=== PATIENT | male | born 1950 | race Caucasian/White ===

== ENCOUNTER → 2017-05-05 15:56 | Outpatient (CLI) | payer MEDICARE, BC, SELFPAY ==
[2017-05-05 20:33] LABS: Anion Gap 9.8 mEq/L (5-15); Blood Urea Nitrogen 14 mg/dL (7-18); Carbon Dioxide 30 mmol/L (21.0-32.0); Chloride 103 mmol/L (98-107); Creatinine,Serum 1.33 mg/dL (0.70-1.30); Estimated Glomerular Filt Rate 54 ml/min (>60); GFR (African American) 65 ML/MIN (>60); Glucose 85 mg/dL (74-106); Potassium 3.8 mmoL/L (3.5-5.1); Sodium 139 mmol/L (136-145)
== END ==
PROVIDERS: PCP Nurse Practitioner Family; Visit Provider Nurse Practitioner Family
DX: E87.6 Hypokalemia (principal)
CPT/HCPCS: 36415; 80048

== ENCOUNTER → 2017-06-21 10:35 | Outpatient (CLI) | payer MEDICARE, BC, SELFPAY ==
[2017-06-21 11:21] LABS: Hemoglobin A1C 5.5 % (0.0-7.0)
[2017-06-21 15:20] LABS: Alanine Aminotransferase 32 U/L (12-78); Albumin Level 3.8 gm/dL (3.4-5.0); Albumin/Globulin Ratio 1.2 (1.1-1.8); Alkaline Phosphatase 81 U/L (46-116); Anion Gap 12.9 mEq/L (5-15); Aspartate Amino Transferase 20 U/L (15-37); Bilirubin,Total 0.4 mg/dL (0.2-1.0); Blood Urea Nitrogen 11 mg/dL (7-18); Calcium 8.2 mg/dL (8.5-10.1); Carbon Dioxide 25 mmol/L (21.0-32.0); Chloride 106 mmol/L (98-107); Chol/HDL Ratio 2.5 (1-3.5); Cholesterol 121 mg/dL (140-200); Creatinine,Serum 1.16 mg/dL (0.70-1.30); Estimated Glomerular Filt Rate 63 ml/min (>60); GFR (African American) 76 ML/MIN (>60); Globulin 3.2 gm/dl (1.3-3.2); Glucose 114 mg/dL (74-106); HDL Cholesterol 48 mg/dL (27-67); LDL Cholesterol 64 mg/dL (0-130); Potassium 3.9 mmoL/L (3.5-5.1); Prostate Specific Ag Screen 1.5 ng/mL (0.0-4.0); Sodium 140 mmol/L (136-145); Thyroid Stimulating Hormone 1.96 uIU/ml (0.358-3.740); Triglycerides 47 mg/dL (30-200); Uric Acid 3.5 mg/dL (2.6-7.2); VLDL Cholesterol 9 mg/dL (0-40)
== END ==
PROVIDERS: Visit Provider Nurse Practitioner Family
DX: E11.9 Type 2 diabetes mellitus without complications (principal); I10 Essential (primary) hypertension; Z12.5 Encounter for screening for malignant neoplasm of prostate; E03.9 Hypothyroidism, unspecified; M19.049 Primary osteoarthritis, unspecified hand; R35.1 Nocturia
CPT/HCPCS: 36415; 80053; 80061; 83036; 84443; 84550; G0103

== ENCOUNTER → 2017-09-08 10:37 | Outpatient (CLI) | payer MEDICARE, BC, SELFPAY ==
[2017-09-08 12:50] LABS: Anion Gap 14.4 mEq/L (5-15); Blood Urea Nitrogen 9 mg/dL (7-18); Calcium 9.2 mg/dL (8.5-10.1); Carbon Dioxide 26 mmol/L (21.0-32.0); Chloride 105 mmol/L (98-107); Creatinine,Serum 1.17 mg/dL (0.70-1.30); Estimated Glomerular Filt Rate 62 ml/min (>60); GFR (African American) 75 ML/MIN (>60); Glucose 123 mg/dL (74-106); Magnesium 2.2 mg/dL (1.4-2.2); Potassium 4.4 mmoL/L (3.5-5.1); Sodium 141 mmol/L (136-145)
== END ==
PROVIDERS: Visit Provider Internal Medicine Cardiovascular Disease
DX: R06.02 Shortness of breath (principal); I25.10 Atherosclerotic heart disease of native coronary artery without angina pectoris; I10 Essential (primary) hypertension
CPT/HCPCS: 36415; 80048; 83735

== ENCOUNTER → 2017-11-24 12:06 | Outpatient (CLI) | payer MEDICARE, BC, SELFPAY ==
[2017-11-24 13:46] LABS: Hemoglobin A1C 6.3 % (0.0-7.0)
[2017-11-24 14:36] LABS: Alanine Aminotransferase 36 U/L (12-78); Albumin/Globulin Ratio 1.3 (1.1-1.8); Alkaline Phosphatase 76 U/L (46-116); Anion Gap 12.5 mEq/L (5-15); Aspartate Amino Transferase 20 U/L (15-37); Bilirubin,Total 0.5 mg/dL (0.2-1.0); Blood Urea Nitrogen 13 mg/dL (7-18); Calcium 8.9 mg/dL (8.5-10.1); Carbon Dioxide 28 mmol/L (21.0-32.0); Chloride 105 mmol/L (98-107); Chol/HDL Ratio 3.6 (1-3.5); Cholesterol 143 mg/dL (140-200); Creatinine,Serum 1.46 mg/dL (0.70-1.30); Estimated Glomerular Filt Rate 48 ml/min (>60); GFR (African American) 58 ML/MIN (>60); Globulin 3.2 gm/dl (1.3-3.2); Glucose 106 mg/dL (74-106); HDL Cholesterol 40 mg/dL (27-67); LDL Cholesterol 74 mg/dL (0-130); Potassium 4.5 mmoL/L (3.5-5.1); Sodium 141 mmol/L (136-145); Thyroid Stimulating Hormone 2.26 uIU/ml (0.358-3.740); Total Protein,Serum 7.2 gm/dL (6.4-8.2); Triglycerides 145 mg/dL (30-200); VLDL Cholesterol 29 mg/dL (0-40)
== END ==
PROVIDERS: PCP Nurse Practitioner Family; Visit Provider Nurse Practitioner Family
DX: E11.9 Type 2 diabetes mellitus without complications (principal); I10 Essential (primary) hypertension; E03.9 Hypothyroidism, unspecified
CPT/HCPCS: 36415; 80053; 80061; 83036; 84443

== ENCOUNTER → 2018-04-04 10:26 | Outpatient (CLI) | payer MEDICARE, BC, SELFPAY ==
[2018-04-04 10:41] LABS: Basophils % 0.1 % (0.1-2.0); Eosinophils # 0.1 K/mm3 (0.0-0.4); Eosinophils % 0.4 % (0.1-12.0); Hematocrit 40.3 % (42.0-52.0); Lymphocytes # 1.8 K/mm3 (0.7-4.5); Lymphocytes % 9.5 % (10-50); Mean Corpuscular HGB Conc 32.4 g/dL (31.8-35.4); Mean Corpuscular Volume 92.6 fl (80-94); Mean Platelet Volume 8.1 fl (7.4-10.4); Monocytes # 1.2 K/mm3 (0.1-1.0); Monocytes % 6.4 % (1.7-9.3); Neutrophils % 83.6 % (37.0-80.0); Platelet Count 283 K/mm3 (142-424); Red Blood Count 4.35 M/mm3 (4.60-6.20); White Blood Count 19.2 K/mm3 (4.8-10.8)
[2018-04-04 10:47] LABS: MANUAL DIFFERENTIAL MANUAL DIFFERENTIAL (MANUAL DIFF)
[2018-04-04 11:38] LABS: Hemoglobin A1C 6.1 % (0.0-7.0)
[2018-04-04 12:42] LABS: Lymphocytes % 10 % (10-50); Monocytes % 5 % (2-9); Neutrophils % 85 % (42-76); Total Cells Counted 100
[2018-04-04 12:43] LABS: Platelet Estimate Normal; RBC Morphology Normal
[2018-04-04 13:15] LABS: Alanine Aminotransferase 30 U/L (12-78); Albumin Level 3.4 gm/dL (3.4-5.0); Alkaline Phosphatase 72 U/L (46-116); Anion Gap 15.3 mEq/L (5-15); Aspartate Amino Transferase 14 U/L (15-37); Bilirubin,Total 0.2 mg/dL (0.2-1.0); Blood Urea Nitrogen 26 mg/dL (7-18); Calcium 8.2 mg/dL (8.5-10.1); Carbon Dioxide 25 mmol/L (21.0-32.0); Chloride 104 mmol/L (98-107); Chol/HDL Ratio 2.5 (1-3.5); Cholesterol 122 mg/dL (140-200); Creatinine,Serum 1.49 mg/dL (0.70-1.30); Estimated Glomerular Filt Rate 47 ml/min (>60); GFR (African American) 57 ML/MIN (>60); Globulin 3.5 gm/dl (1.3-3.2); Glucose 112 mg/dL (74-106); HDL Cholesterol 49 mg/dL (27-67); LDL Cholesterol 62 mg/dL (0-130); Potassium 4.3 mmoL/L (3.5-5.1); Sodium 140 mmol/L (136-145); Total Protein,Serum 6.9 gm/dL (6.4-8.2); Triglycerides 55 mg/dL (30-200); VLDL Cholesterol 11 mg/dL (0-40)
[2018-04-08 10:31] LABS: Immunoglobulin E, Total 520 IU/mL (0-100)
== END ==
PROVIDERS: Visit Provider Nurse Practitioner Family
DX: E78.00 Pure hypercholesterolemia, unspecified (principal); E11.9 Type 2 diabetes mellitus without complications; E03.9 Hypothyroidism, unspecified; T78.3XXA Angioneurotic edema, initial encounter
CPT/HCPCS: 36415; 80053; 80061; 82785; 83036; 84443; 85007; 85025

== ENCOUNTER → 2018-06-04 14:26 | Outpatient (CLI) | payer MEDICARE, BC, SELFPAY ==
--- NOTE | 2018-06-04 14:37 | US_ITS ---
US kidney retroperitoneal comp Ordering Physician: Courtney Best Patient Age: 67 years: Male HISTORY: ITS.REASON: HTN, CKD III renal insufficiency TECHNIQUE: Ultrasound both kidneys. Retroperitoneal COMPARISON :May 2013 ultrasound abdomen complete FINDINGS : Cortex well-maintained bilaterally with no hydronephrosis nor mass. Good color Doppler flow survey to both kidneys. The spleen is incidentally imaged and appears WNL. Character. No solid masses either kidney RIGHT KIDNEY.: 9.9 x 4 cm x 7.2 cm. 2.7 cm x 2.1 cm x2.4 benign-appearing exophytic cyst extending off lower pole right kidney... This is not seen on the previous abdominal study 2013. . LEFT KIDNEY 10.7 x 4.8 cm x 5.1 cm. IMPRESSION: No hydronephrosis nor mass. Kidneys intact normal size cortex well-maintained. Right renal cyst measures up to 2.7 cm. This is seen off the lower pole of the right kidney
[2018-06-04 16:14] LABS: Anion Gap 12.3 mEq/L (5-15); Blood Urea Nitrogen 13 mg/dL (7-18); Calcium 8.6 mg/dL (8.5-10.1); Carbon Dioxide 26 mmol/L (21.0-32.0); Chloride 105 mmol/L (98-107); Creatinine,Serum 1.37 mg/dL (0.70-1.30); Estimated Glomerular Filt Rate 52 ml/min (>60); GFR (African American) 63 ML/MIN (>60); Glucose 82 mg/dL (74-106); Magnesium 2.2 mg/dL (1.4-2.2); Phosphorous 3.7 mg/dL (2.4-4.9); Potassium 4.3 mmoL/L (3.5-5.1); Sodium 139 mmol/L (136-145)
== END ==
PROVIDERS: Visit Provider Nurse Practitioner Family
DX: N18.3 Chronic kidney disease, stage 3 (moderate) (principal); E83.41 Hypermagnesemia
CPT/HCPCS: 36415; 76770; 80048; 83735; 84100

== ENCOUNTER → 2018-07-04 11:03 | Outpatient (CLI) | payer MEDICARE, BC, SELFPAY ==
[2018-07-04 13:32] LABS: Anion Gap 14.3 mEq/L (5-15); Blood Urea Nitrogen 14 mg/dL (7-18); Calcium 8.9 mg/dL (8.5-10.1); Carbon Dioxide 26 mmol/L (21.0-32.0); Chloride 106 mmol/L (98-107); Creatinine,Serum 1.44 mg/dL (0.70-1.30); Estimated Glomerular Filt Rate 49 ml/min (>60); GFR (African American) 59 ML/MIN (>60); Glucose 106 mg/dL (74-106); Magnesium 2.3 mg/dL (1.4-2.2); Potassium 4.3 mmoL/L (3.5-5.1); Sodium 142 mmol/L (136-145)
== END ==
PROVIDERS: Visit Provider Nurse Practitioner Family
DX: E83.41 Hypermagnesemia (principal); N18.3 Chronic kidney disease, stage 3 (moderate)
CPT/HCPCS: 36415; 80048; 83735

== ENCOUNTER → 2019-04-21 11:48 | Outpatient (CLI) | payer MEDICARE, BC, SELFPAY ==
[2019-04-21 12:17] LABS: Basophils # 0.1 K/mm3 (0-0.2); Basophils % 1.6 % (0.1-2.0); Eosinophils # 0.3 K/mm3 (0.0-0.4); Eosinophils % 3.7 % (0.1-12.0); Hemoglobin 14.8 g/dL (14.1-18.0); Lymphocytes # 1.6 K/mm3 (0.7-4.5); Lymphocytes % 19.8 % (10-50); Mean Corpuscular HGB Conc 32.8 g/dL (31.8-35.4); Mean Corpuscular Hemoglobin 29.8 pg (27.0-31.2); Mean Corpuscular Volume 90.9 fl (80-94); Mean Platelet Volume 7.8 fl (7.4-10.4); Monocytes # 0.5 K/mm3 (0.1-1.0); Monocytes % 6.1 % (1.7-9.3); Neutrophils # 5.6 K/mm3 (1.8-7.8); Neutrophils % 68.9 % (37.0-80.0); Platelet Count 244 K/mm3 (142-424); Red Blood Count 4.95 M/mm3 (4.60-6.20); White Blood Count 8.1 K/mm3 (4.8-10.8)
[2019-04-21 13:30] LABS: Creatinine,Urine Random 26 mg/dL (20-320)
[2019-04-21 14:29] LABS: Alanine Aminotransferase 28 U/L (12-78); Albumin Level 3.7 gm/dL (3.4-5.0); Albumin/Globulin Ratio 1.2 (1.1-1.8); Alkaline Phosphatase 81 U/L (46-116); Anion Gap 16.3 mEq/L (5-15); Aspartate Amino Transferase 21 U/L (15-37); Bilirubin,Total 0.5 mg/dL (0.2-1.0); Blood Urea Nitrogen 13 mg/dL (7-18); Calcium 8.5 mg/dL (8.5-10.1); Carbon Dioxide 26 mmol/L (21.0-32.0); Chloride 108 mmol/L (98-107); Chol/HDL Ratio 3.6 (1-3.5); Cholesterol 133 mg/dL (140-200); Creatinine,Serum 1.43 mg/dL (0.70-1.30); Estimated Glomerular Filt Rate 49 ml/min (>60); GFR (African American) 60 ML/MIN (>60); Globulin 3.2 gm/dl (1.3-3.2); Glucose 105 mg/dL (74-106); HDL Cholesterol 37 mg/dL (27-67); LDL Cholesterol 76 mg/dL (0-130); Magnesium 2.2 mg/dL (1.4-2.2); Potassium 4.3 mmoL/L (3.5-5.1); Sodium 146 mmol/L (136-145); Thyroid Stimulating Hormone 1.72 uIU/ml (0.358-3.740); Total Protein,Serum 6.9 gm/dL (6.4-8.2); Triglycerides 99 mg/dL (30-200); VLDL Cholesterol 20 mg/dL (0-40)
[2019-04-22 12:35] LABS: Microalbumin, Urine <3.0 ug/mL (Not Estab.)
== END ==
PROVIDERS: Visit Provider Nurse Practitioner Family
DX: E11.9 Type 2 diabetes mellitus without complications (principal); E03.9 Hypothyroidism, unspecified; N18.3 Chronic kidney disease, stage 3 (moderate); E83.42 Hypomagnesemia; R35.1 Nocturia; I12.9 Hypertensive chronic kidney disease with stage 1 through stage 4 chronic kidney disease, or unspecified chronic kidney disease; Z12.5 Encounter for screening for malignant neoplasm of prostate
CPT/HCPCS: 36415; 80053; 80061; 82043; 82570; 83036; 83735; 84443; 85025; G0103

== ENCOUNTER → 2019-05-04 12:47 | Outpatient (CLI) | payer MEDICARE, BC, SELFPAY ==
--- NOTE | 2019-05-04 12:50 | CT_ITS ---
PROCEDURE: CT LUNG SCREENING CLINICAL INDICATION: CURRENT TOBACCO USE Seventy-five pack-year smoking history, asymptomatic for lung cancer COMPARISON: No exams were available for comparison TECHNIQUE: The exam was performed on a GE Light Speed [address] scanner using 2.90 mGy CTDI. A low dose helical CT CHEST was performed on a multi-detector scanner. All CT scans at the facility use one or more dose reduction, viz: automated exposure control, ma/kV adjustment per patient size (including targeted exams where dose is matched to indication, i.e. head), or iterative reconstruction technique. The LDCT was performed in a facility that meets the criteria for the screening program. Data regarding this exam was submitted to ACR which is an approved registry. The order for this exam indicates that it came as a result of a lung cancer screening counseling shard decision-making visit that included all the elements required of such a visit including smoking cessation. The radiologist interpreting this exam meets the CMS criteria for the LDCT lung cancer screening program. The exam is reported using the Lung-RADS classification scale and reported to the ACR registry. NOTE: This study was performed for the specific purposes of lung cancer screening and is not an alternative to diagnostic chest CT. RADIATION DOSE: CTDI vol(CT dose Index-volume) = 2.90mG DLP (Dose Length Product) = 117.50 mGcm FINDINGS: There is a 12 x 11 mm noncalcified nodule in the right apex. The margins are slightly irregular. There is calcified granuloma in the right upper lobe. Nodularity is also noted in the right hilar region anteriorly and may represent an additional nodule or small lymph nodes. This measures approximately 10 x 12 mm. There is some patchy airspace opacification at this region as well. There is a 5 mm noncalcified nodule in the left lower lobe series 4, image 56. No effusions are evident. There is mild coarsening of the bronchovascular markings. Coronary artery calcifications are present in there are a few small mildly prominent mediastinal lymph nodes measuring up to 12 by 13 mm in the paratracheal region inferiorly. There is narrowing of the right upper lobe bronchus with some increased soft tissue density at this area. There is fullness of the right hilum in the region of the right upper lobe bronchus. Bronchial lesion is suspected. CT of the chest without and with contrast is suggested for further evaluation. Incidental note is made of gynecomastia. IMPRESSION: Abnormal screening low dose chest CT. Findings are suspicious for neoplasm with narrowing of the right mainstem bronchus, nodularity in the right hilar region, and a 12 mm right upper lobe nodule as well as a few mildly prominent mediastinal lymph nodes. Lung rads 4 A Recommend dedicated chest CT without and with contrast for further evaluation Dictated by: Van Kimble MD 05/17/2019 08:15 Electronically signed by Van Kimble MD in [place] 05/17/2019 08:15
== END ==
PROVIDERS: PCP Nurse Practitioner Family; Visit Provider Nurse Practitioner Family
DX: Z87.891 Personal history of nicotine dependence (principal); Z12.2 Encounter for screening for malignant neoplasm of respiratory organs

== ENCOUNTER → 2019-05-24 11:55 | Outpatient (CLI) | payer MEDICARE, BC, SELFPAY ==
[2019-05-24 12:18] LABS: Blood Urea Nitrogen 11 mg/dl (9-20); Estimated Glomerular Filt Rate 55 ml/min (>60); GFR (African American) 66 ML/MIN (>60)
--- NOTE | 2019-05-24 13:20 | CT_ITS ---
PROCEDURE: CT CHEST WO/W CON CLINCAL INDICATION: ABNORMAL ABDOMINAL CT Lung mass evaluation COMPARISON: ABDPELW/O CT ABD PELVIS W/O CONTRAST from 10/11/2014 CT LUNG SCREENING from 05/04/2019 TECHNIQUE: IV Contrast: 75 ml Optiray 350 Axial images obtained with sagittal and coronal reformats. All CT scans at the facility use one or more dose reduction, viz: automated exposure control, ma/kV adjustment per patient size (including targeted exams where dose is matched to indication, i.e. head), or iterative reconstruction technique. FINDINGS: HEART AND MEDIASTINAL STRUCTURES: Coronary artery calcification and stents noted. There is a mildly prominent node or cluster of nodes within the right anterior paratracheal region at 2.2 by 1.3 cm. There are small left paratracheal lymph nodes also present. There is a right hilar mass measuring 3 x 2.7 x 2.3 cm. This envelopment in the right upper lobe bronchus and extends inferior lying along the superior aspect of the descending branch of the right pulmonary artery in the right middle lobe branch of the pulmonary artery. This is causing marked narrowing of the right upper lobe bronchus with occlusion of the proximal aspect of the apical segmental and anterior segmental bronchi with marked narrowing of the posterior segmental bronchi to the right upper lobe with bronchial thickening. No contralateral mediastinal or hilar adenopathy is evident although there are some small nodes in the left paratracheal region which are 6 mm or less. LUNGS AND PLEURAL SPACES: There is a noncalcified 12 mm nodule in the right apex with spiculated margins suspicious for neoplasm. There is some fibrotic change superior to this region. A calcified nodules present in the right upper lobe laterally. There is some mild nodularity in the anterior aspect of the right hilum. There is some patchy infiltrate in the right upper lobe anteriorly and centrally. The left lung is clear. BONY STRUCTURES: No acute bony abnormalities apparent. UPPER ABDOMEN: The right adrenal gland is enlarged with nodule enlargement measuring up to 2 cm. The unenhanced density however is approximately -2 Hounsfield units suggesting adenomatous involvement. There was some enlargement of the adrenal gland on a older CT scan of 10/11/2014. This is NOT felt to be suspicious for metastatic disease. The left lobe of the liver is slightly prominent which is nonspecific ADDITIONAL FINDINGS: No other significant abnormalities. IMPRESSION: 1. Right hilar mass/adenopathy with suspicious 12 mm nodule in the right apex. These findings are consistent with lung carcinoma. The right hilar mass is causing occlusion of the proximal aspect of the anterior and apical segmental bronchus with narrowing of the right upper lobe bronchus. Bronchoscopy suggested for further evaluation. 2. Mildly prominent pretracheal lymph nodes. 3. Enlarged right adrenal gland felt to be adenomatous in nature Dictated by: Van Kimble MD 05/25/2019 07:10 Electronically signed by Van Kimble MD in [place] 05/25/2019 07:10
== END ==
PROVIDERS: PCP Nurse Practitioner Family; Visit Provider Nurse Practitioner Family
DX: R91.1 Solitary pulmonary nodule (principal); R93.5 Abnormal findings on diagnostic imaging of other abdominal regions, including retroperitoneum
CPT/HCPCS: 36415; 71270; 82565; 84520; Q9967

== ENCOUNTER → 2021-02-12 11:18 | Outpatient (CLI) | payer MEDICARE, BC, SELFPAY ==
[2021-02-12 11:52] LABS: Basophils # 0.1 K/mm3 (0-0.2); Basophils % 1.1 % (0.1-2.0); Eosinophils # 0.2 K/mm3 (0.0-0.4); Eosinophils % 2.6 % (0.1-12.0); Hematocrit 39.9 % (42.0-52.0); Hemoglobin 13.9 g/dL (14.1-18.0); Lymphocytes # 1.4 K/mm3 (0.7-4.5); Lymphocytes % 20.8 % (10-50); Mean Corpuscular HGB Conc 34.9 g/dL (31.8-35.4); Mean Corpuscular Hemoglobin 32.4 pg (27.0-31.2); Mean Corpuscular Volume 92.9 fl (80-94); Mean Platelet Volume 7.9 fl (7.4-10.4); Monocytes # 0.4 K/mm3 (0.1-1.0); Monocytes % 5.3 % (1.7-9.3); Neutrophils # 4.9 K/mm3 (1.8-7.8); Neutrophils % 70.2 % (37.0-80.0); Platelet Count 217 K/mm3 (142-424); Red Blood Count 4.29 M/mm3 (4.60-6.20); White Blood Count 6.9 K/mm3 (4.8-10.8)
[2021-02-12 14:16] LABS: Chloride 109 mmol/L (98-107)
[2021-02-12 14:17] LABS: Potassium 4.5 mmoL/L (3.5-5.1); Sodium 141 mmol/L (136-145)
[2021-02-12 14:19] LABS: Alanine Aminotransferase 26 U/L (12-78); Aspartate Amino Transferase 35 U/L (17-59); Blood Urea Nitrogen 9 mg/dl (9-20); Estimated Glomerular Filt Rate 66 ml/min (>60); GFR (African American) 80 ML/MIN (>60)
[2021-02-12 14:20] LABS: Albumin/Globulin Ratio 1.5 (1.1-1.8); Alkaline Phosphatase 73 U/L (38-126); Anion Gap 10.5 mEq/L (5-15); Bilirubin,Total 0.6 mg/dl (0.2-1.3); Calcium 8.4 mg/dl (8.4-10.2); Carbon Dioxide 26 mmol/L (22.0-30.0); Globulin 2.7 g/dL (1.3-3.2); Glucose 118 mg/dl (74-100); Total Protein,Serum 6.7 g/dl (6.3-8.2)
[2021-02-12 14:53] LABS: Thyroid Stimulating Hormone 2.52 uIU/mL (0.465-4.68)
== END ==
PROVIDERS: Visit Provider Nurse Practitioner Family
DX: E03.9 Hypothyroidism, unspecified (principal); N18.31 Chronic kidney disease, stage 3a
CPT/HCPCS: 36415; 80053; 84443; 85025

== ENCOUNTER → 2023-03-18 10:49 | Outpatient (CLI) | payer MEDICARE, BC, SELFPAY ==
[2023-03-18 11:28] LABS: Basophils % 0.5 % (0.1-2.0); Eosinophils # 0.3 K/mm3 (0.0-0.4); Eosinophils % 4.7 % (0.1-12.0); Hematocrit 42.9 % (42.0-52.0); Hemoglobin 14.7 g/dL (14.1-18.0); Lymphocytes # 1.5 K/mm3 (0.7-4.5); Lymphocytes % 21.1 % (10-50); Mean Corpuscular HGB Conc 34.3 g/dL (31.8-35.4); Mean Corpuscular Hemoglobin 30.7 pg (27.0-31.2); Mean Corpuscular Volume 89.5 fl (80-94); Monocytes # 0.3 K/mm3 (0.1-1.0); Monocytes % 4.8 % (1.7-9.3); Neutrophils # 4.9 K/mm3 (1.8-7.8); Neutrophils % 68.9 % (37.0-80.0); Platelet Count 235 K/mm3 (142-424); Red Blood Count 4.79 M/mm3 (4.60-6.20); Red Cell Distribution Width 14.6 % (11.5-17.5); White Blood Count 7.2 K/mm3 (4.8-10.8)
[2023-03-18 11:49] LABS: Hemoglobin A1C 6.2 % (4.0-6.0)
[2023-03-18 12:12] LABS: Chloride 106 mmol/L (98-107)
[2023-03-18 12:13] LABS: Potassium 3.8 mmoL/L (3.5-5.1)
[2023-03-18 12:15] LABS: Alanine Aminotransferase 29 U/L (12-78); Albumin Level 4.3 g/dl (3.5-5.0); Albumin/Globulin Ratio 1.7 (1.1-1.8); Alkaline Phosphatase 93 U/L (38-126); Aspartate Amino Transferase 31 U/L (17-59); Bilirubin,Total 0.6 mg/dl (0.2-1.3); Blood Urea Nitrogen 9 mg/dl (9-20); Carbon Dioxide 29 mmol/L (22.0-30.0); Cholesterol 131 mg/dl (140-200); Estimated Glomerular Filt Rate 60 ml/min (>60); GFR (African American) 72 ML/MIN (>60); Globulin 2.5 g/dL (1.3-3.2); Total Protein,Serum 6.8 g/dl (6.3-8.2); Triglycerides 115 mg/dl (30-150); VLDL Cholesterol 23 mg/dL (0-40)
[2023-03-18 12:16] LABS: Calcium 8.4 mg/dl (8.4-10.2); Chol/HDL Ratio 3.4 (1-3.5); Glucose 136 mg/dl (74-100); HDL Cholesterol 39 mg/dl (40-60)
[2023-03-18 12:38] LABS: Direct LDL Cholesterol 80.01 mg/dL (100-129)
[2023-03-18 12:48] LABS: Creatinine,Urine Random 52 mg/dL (Not Estab.); Microalbumin < 6.000 mg/L (0-16.7)
[2023-03-18 13:01] LABS: Uric Acid 5.2 mg/dl (3.5-8.5)
[2023-03-18 15:15] LABS: Anion Gap 8.8 mEq/L (5-15); Sodium 140 mmol/L (136-145)
== END ==
PROVIDERS: PCP Nurse Practitioner Family; Visit Provider Nurse Practitioner Family
DX: E11.9 Type 2 diabetes mellitus without complications (principal); I10 Essential (primary) hypertension; M1A.9XX0 Chronic gout, unspecified, without tophus (tophi); C34.91 Malignant neoplasm of unspecified part of right bronchus or lung; Z86.79 Personal history of other diseases of the circulatory system
CPT/HCPCS: 36415; 80053; 80061; 82043; 82570; 83036; 84550; 85025

== ENCOUNTER 2023-10-20 13:23 | Emergency (ER) | payer MEDICARE, BC, SELFPAY ==
[2023-10-20] VITALS (7 sets, daily range): BP systolic 126–140; BP diastolic 72–83; PULSE 86–108; RESP 18–20; TEMP 36.6–37; O2SAT 94–98; BMI 34.0
--- NOTE | 2023-10-20 13:45 | [facility].EDGENADL ---
Discharge Plan Disposition Patient Disposition: Xfer Short-Term Hosp Referrals Follow up/Referrals: Provider,Referral, [Primary Care Provider] - See instructions Clinical Impressions Clinical Impression: Acute renal failure, Bowel obstruction Instructions Patient Instructions: DI for Diarrhea and Traveler's Diarrhea -- Adult, DI for Diarrhea and Traveler's Diarrhea -- Child, DI for Nausea -- Adult, DI for Nausea -- Child Discharge ED Provider: Eliza Smith General Adult HPI General Chief complaint: Nausea/Vomiting/Diarrhea Stated complaint: Weakness Time Seen by Provider: 10/20/23 13:42 History of Present Illness HPI narrative: This patient is a 72-year-old male with a history of metastatic lung cancer not currently on treatment who has previously done chemo and radiation per the patient, 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 Patient notes that he started having crampy abdominal pain on Friday of last week, and by Friday he developed intractable nausea and vomiting. He notes he has not really been able to eat or drink anything since Friday. He has not vomited in the last 24 hours, but the pain has been persistent. He also has not had ostomy output during this timeframe. Given this, he came in for further evaluation and management. He denies fevers or other concerns. Related Data Allergies Allergy/AdvReac Type Severity Reaction Status Date / Time From [facility] Allergy Severe I-HIVES, Uncoded 03/18/17 14:27 [facility]ON[facility] MORALES [facility] Disclaimer: The information contained in this section may have been updated after the patient was seen, as this information can be updated by other users. Social History Smoking Status: Never smoker alcohol intake: never current occupational status: retired Travel in the last 8 weeks: None ROS Obtained: Yes All systems reviewed & no additional complaints except as documented Physical Exam General General appearance: alert, in no apparent distress and obese Head Head exam: atraumatic and normocephalic Eye Eye exam: Present normal appearance, PERRL and EOMI ENT ENT exam: Present mucous membranes dry and normal external ear exam Neck Neck exam: Present normal inspection, full ROM and trachea midline; Absent tenderness Chest Chest inspection: Present normal inspection and symmetric chest wall rise; Absent tenderness Respiratory Respiratory exam: Present normal lung sounds bilaterally; Absent respiratory distress, wheezes, stridor or accessory muscle use Cardiovascular Cardiovascular exam: Present regular rate and normal rhythm Abdominal Exam Abdominal exam: Present distention and tenderness; Absent guarding, rebound or rigidity Extremities Exam Extremities exam: Present normal inspection, full ROM and normal capillary refill; Absent tenderness or edema Back Exam Back exam: Present normal inspection and full ROM; Absent tenderness Neurological Exam Neurological exam: Present alert, oriented X3, CN II-XII intact and normal gait; Absent motor sensory deficit Psychiatric Psychiatric exam: Present normal affect and normal mood Skin Skin exam: Present warm and dry Medical Decision Making Medical Records Medical records reviewed: Yes I reviewed the patient's medical records. Michael Inquiry Pt receiving controlled substance: No Vital Signs: 10/20/23 13:37 10/20/23 16:00 Temperature 97.8 F Temperature Source Oral Pulse Rate 86 Pulse Rate [Left Radial] 108 H Respiratory Rate 20 Blood Pressure 126/78 Blood Pressure [Right Arm] 136/72 Blood Pressure Mean 96 Blood Pressure Mean [Right Arm] 93 02 Sat by Pulse Oximetry 98 95 Oxygen Delivery Method Room Air Room Air Lab Data Lab results reviewed: Yes I reviewed the patient's lab results. Lab Results 10/20/23 13:15: WBC 5.8, RBC 5.08, Hgb 16.0, Hct 47.4, MCV 93.2, MCH 31.4 H, MCHC 33.7, RDW 15.3, Plt Count 245, MPV 8.4, Neut % (Auto) 69.6, Lymph % (Auto) 14.9, [place] % (Auto) 13.7 H, Eos % (Auto) 0.9, Baso % (Auto) 0.9, Neut # (Auto) 4.0, Lymph # (Auto) 0.9, [place] # (Auto) 0.8, Eos # (Auto) 0.1, Baso # (Auto) 0.1, PT 11.3, INR 1.01, Sodium 137, Potassium 4.1, Chloride 93 L, Carbon Dioxide 28, Anion Gap 20.1 H, BUN 65 H, Creatinine 4.50 H, Estimated Creat Clear 21, Estimated GFR 13 L*, Est GFR ( Amer) 16 L*, Glucose 131 H, Calcium 9.9, Total Bilirubin 0.9, AST 37, ALT 38, Alkaline Phosphatase 92, Total Protein 8.2, Albumin 4.6, Globulin 3.6 H, Albumin/Globulin Ratio 1.3, Lipase 19 L 10/20/23 13:15 10/20/23 13:15 Orders (Tests/Meds): ED MEDICATIONS Discontinued Medications Generic Name Dose Route Start Last Admin Trade Name Freq PRN Reason Stop Dose Admin Acetaminophen 1,000 mg 10/20/23 13:44 10/20/23 14:04 Acetaminophen 1,000mg/100ml Vial IV 10/20/23 13:45 1,000 mg ONCE ONE Administration Lactated Ringer's 1,000 mls @ 999 mls/hr 10/20/23 13:44 10/20/23 14:03 Lactated Ringer's 1000 Ml Bag IV 10/20/23 14:44 999 mls/hr .Q1H1M ONE Administration Lactated Ringer's 1,000 mls @ 999 mls/hr 10/20/23 15:22 10/20/23 15:30 Lactated Ringer's 1000 Ml Bag IV 10/20/23 16:22 999 mls/hr .Q1H1M ONE Administration Ketorolac Tromethamine 15 mg 10/20/23 13:44 10/20/23 14:04 Ketorolac 30mg/Ml Vial IV 10/20/23 13:45 15 mg ONCE ONE Administration Ondansetron HCl 4 mg 10/20/23 13:44 10/20/23 14:04 Ondansetron 4mg/2ml Vial IV 10/20/23 13:45 4 mg ONCE ONE Administration ORDERS Category Date Time Status CT abdomen pelvis wo con Stat Cat Scan 10/20/23 14:08 Completed Complete Blood Count Auto Diff Stat Lab 10/20/23 13:15 Completed Comprehensive Metabolic Panel Stat Lab 10/20/23 13:15 Completed INR [Prothrombin Time INR] Stat Lab 10/20/23 13:15 Completed Lactic Acid Stat Lab 10/20/23 13:43 Ordered Lipase Stat Lab 10/20/23 13:15 Completed UA [Urinalysis and Microscopic] Stat Lab 10/20/23 13:43 Ordered Medical Decision Narrative: In summary, this patient is a 72-year-old male presenting to the Emergency Department for evaluation of generalized abdominal pain, nausea, and vomiting. Differential diagnoses considered include but are not limited to bowel obstruction, colitis, constipation, cystitis, pyelonephritis. Ruling out the most morbid conditions drove assessment. On exam, the patient is sitting up in no acute distress. He has generalized abdominal tenderness and distention as well as dry mucous membranes. I note essentially no output in his ostomy bag. I have highest concern for bowel obstruction. Workup included CBC, CMP, lipase, and CT abdomen and pelvis without IV contrast. Patient is given a bolus of IV fluids as well as IV TORADOL, ACETAMINOPHEN, AND ZOFRAN. I independently interpreted CT scan prior to the radiologist read and noted bowel obstruction. Please see their read for final interpretation. Radiology noted concern for hernia, but I feel the are likely talking about his ostomy as I do not appreciate large hernia. Labs were obtained that demonstrated acute renal failure with a creatinine of 4.5 from a baseline of 1.3. No significant leukocytosis or other concerns. On reassessment, patient had good improvement after administration of as above and is requesting food and drink, however advised him we cannot give him anything given his bowel obstruction. Not placing an NG tube at this time given the lack of vomiting. I had and after discussion with our surgeon here, but patient has had multiple surgeries in the past and follows at with colorectal surgery, so given this as well as his acute renal failure, he felt the patient would benefit from transfer. Patient was given total of 1.5 L of IV fluids and still is making no urine. I initiated conversations with , and I spoke with Dr. Champion of the transfer center and Dr. Solomon with colorectal surgery who advised that they would send the patient to for evaluation and management. They do have beds available, so patient will go to direct bed. Patient updated to plan of care. Patient was transported in stable condition. Critical Care Critical Care Time Critical Care Time: No
[2023-10-20 13:53] LABS: Chloride 93 mmol/L (98-107); Potassium 4.1 mmoL/L (3.5-5.1); Sodium 137 mmol/L (136-145)
[2023-10-20 13:55] LABS: Alanine Aminotransferase 38 U/L (12-78); Aspartate Amino Transferase 37 U/L (17-59); Blood Urea Nitrogen 65 mg/dl (9-20); Creatinine Clearance Estimated 21 mL/min (50-200); Estimated Glomerular Filt Rate 13 ml/min (>60); GFR (African American) 16 ML/MIN (>60)
[2023-10-20 13:56] LABS: Albumin Level 4.6 g/dl (3.5-5.0); Albumin/Globulin Ratio 1.3 (1.1-1.8); Alkaline Phosphatase 92 U/L (38-126); Anion Gap 20.1 mEq/L (5-15); Bilirubin,Total 0.9 mg/dl (0.2-1.3); Calcium 9.9 mg/dl (8.4-10.2); Carbon Dioxide 28 mmol/L (22.0-30.0); Globulin 3.6 g/dL (1.3-3.2); Glucose 131 mg/dl (74-100); Lipase 19 U/L (23-300); Total Protein,Serum 8.2 g/dl (6.3-8.2)
[2023-10-20 14:00] LABS: Basophils # 0.1 K/mm3 (0-0.2); Basophils % 0.9 % (0.1-2.0); Eosinophils # 0.1 K/mm3 (0.0-0.4); Eosinophils % 0.9 % (0.1-12.0); Hematocrit 47.4 % (42.0-52.0); INR 1.01 (0.9-1.1); Lymphocytes # 0.9 K/mm3 (0.7-4.5); Lymphocytes % 14.9 % (10-50); Mean Corpuscular HGB Conc 33.7 g/dL (31.8-35.4); Mean Corpuscular Hemoglobin 31.4 pg (27.0-31.2); Mean Corpuscular Volume 93.2 fl (80-94); Mean Platelet Volume 8.4 fl (7.4-10.4); Monocytes # 0.8 K/mm3 (0.1-1.0); Monocytes % 13.7 % (1.7-9.3); Neutrophils % 69.6 % (37.0-80.0); Platelet Count 245 K/mm3 (142-424); Prothrombin Time 11.3 seconds (10.1-12.5); Red Blood Count 5.08 M/mm3 (4.60-6.20); Red Cell Distribution Width 15.3 % (11.5-17.5); White Blood Count 5.8 K/mm3 (4.8-10.8)
[2023-10-20] MEDS: LACTATED RINGERS 1000ML 1,000 ML 999 ML IV ×2 (14:03→15:30)
--- NOTE | 2023-10-20 14:03 | PC.NURSE ---
Dr. Smith notified of pt critical creat and GRF. MD gave verbal order to change CT to without contrast
[2023-10-20] MEDS: KETOROLAC 30MG/ML VIAL 15 MG IV (14:04)
[2023-10-20] MEDS: ACETAMINOPHEN 1,000MG/100ML VIAL 1000 MG IV (14:04)
[2023-10-20] MEDS: ONDANSETRON 4MG/2ML VIAL 4 MG IV (14:04)
--- NOTE | 2023-10-20 14:08 | CT_ITS ---
FINAL REPORT TECHNIQUE: Noncontrast CT exam of the abdomen and pelvis. This study was performed with techniques to keep radiation doses as low as reasonably achievable (ALARA). Individualized dose reduction techniques using automated exposure control or adjustment of mA and/or kV according to the patient''s size were employed. CLINICAL HISTORY: nausea/vomiting FINDINGS: Abdomen: Lung bases are clear. Liver, spleen, pancreas and adrenal glands have a normal CT appearance in their limited unenhanced state. The kidneys show no stone disease or obstruction. No obvious renal mass is present. No ureteral stones are present. There is significant small bowel distension with fluid measuring up to 47 mm. There is mild gastric distention with fluid. Findings are secondary to high-grade obstruction involving the distal jejunum within a right para midline central abdominal wall hernia. The abdominal defect measures 2.3 cm. The hernia sac measures 6.5 cm. Pelvis: The ileum and colon are decompressed. There is mild nonspecific stranding in the left lower quadrant fat. No distal ureteral stones are seen. Bladder is unremarkable. The prostate is unremarkable. IMPRESSION: High-grade partial small-bowel obstruction associated with a right paramidline abdominal wall hernia containing jejunum. Reviewed, Interpreted and Dictated by Francisco J Burgess MD Transcribed by Sara Valenzuela Authenticated and [facility]
--- NOTE | 2023-10-20 15:11 | PC.NURSE ---
dr pelletier paged
--- NOTE | 2023-10-20 15:25 | PC.NURSE ---
spoke to tx center. they advised the attending is doing handoff for another pt and will call us back soon
--- NOTE | 2023-10-20 15:30 | PC.NURSE ---
Dr. Smith on the phone with [facility]
--- NOTE | 2023-10-20 15:49 | PC.NURSE ---
Dr. Smtih reported pt has been accepted by Dr. Solomon at . Pt will to transfer to the floor and not the ED. waiting on a bed assignment.
--- NOTE | 2023-10-20 15:50 | PC.NURSE ---
DR MORENO AT BEDSIDE TO UPDATE PT
--- NOTE | 2023-10-20 17:14 | PC.NURSE ---
imaging disc in patient information packet for transfer
[2023-10-20] MEDS: FAMOTIDINE 20MG/2ML VIAL 20 MG IV (17:16)
== END 2023-10-20 19:20 | disposition short-term general hospital (02) ==
PROVIDERS: Emergency Provider Emergency Medicine
DX: K56.609 Unspecified intestinal obstruction, unspecified as to partial versus complete obstruction (principal); N17.9 Acute kidney failure, unspecified; Z93.3 Colostomy status; Z90.49 Acquired absence of other specified parts of digestive tract
CPT/HCPCS: 74176; 80053; 83690; 85025; 85610; 96361; 96374; 96375; 99285; J0131; J1885; J2405; J7120; S0028

== ENCOUNTER 2023-11-04 19:03 | Emergency (ER) | payer MEDICARE, BC, SELFPAY ==
[2023-11-04 19:04] VITALS: BP 133/93; PULSE 86; RESP 22; TEMP 37.1; O2SAT 95; BMI 34.2
--- NOTE | 2023-11-04 19:05 | ED_ITS ---
Discharge Plan Disposition Patient Disposition: Xfer Short-Term Hosp Condition: Serious Clinical Impressions Clinical Impression: Complete obstruction of small intestine, Sepsis without septic shock Stand Alone Forms Stand Alone Forms: Transfer Record - ED Instructions Patient Instructions: DI for Diarrhea and Traveler's Diarrhea -- Adult, DI for Diarrhea and Traveler's Diarrhea -- Child, DI for Nausea -- Adult, DI for Nausea -- Child Print Language Print Language: Macedonian Discharge ED Provider: Zaheer Gonzales General Adult HPI <ANTONELLA Cuevas - Last Filed: 11/04/23 21:04> General Chief complaint: Nausea/Vomiting/Diarrhea Stated complaint: Nausea Time Seen by Provider: 11/04/23 19:05 History of Present Illness HPI narrative: Patient presents for nausea vomiting and abdominal pain. Patient has an extensive abdominal surgical history as well as medical history. Patient has a history of stage IV lung cancer status post chemo and radiation and a history of diverticulitis initially with a left colectomy and left lower quadrant colostomy but ultimately required a loop ileostomy with a right lower quadrant ostomy which was last done in the early part of 2019 for March I believe. He presented to [facility] on with acute abdominal pain and was found to have a high-grade small bowel obstruction proximally with a abdominal wall hernia containing jejunum as a transition point. Patient was resuscitated here and ultimately transferred to the [facility] on . Patient was admitted from 10-19 until 8?2 and then discharged home. He was managed conservatively with NG tube decompression however his diet was only advanced to GI soft prior to discharge according to the note. Patient was fine for 1 day and then started having increasing abdominal pain and has not had a bowel movement since Friday. He has not eaten since Friday and anything that he does eat comes up. He has had increasing abdominal discomfort as well and presents to the emergency department for evaluation. He denies fever chills hemoptysis hematochezia hematemesis hematuria or diarrhea. Related Data Allergies Allergy/AdvReac Type Severity Reaction Status Date / Time From [facility]OR[facility]IC Allergy Severe I-HIVES, Uncoded 03/18/17 14:27 LIPS SWELL <Zaheer Gonzales MD - Last Filed: 11/04/23 21:37> History of Present Illness HPI narrative: Was admitted from 10-19 until 8?2 Hank Youssef is a 72 yo male with PMHx significnat for stage IV lung cancer and diverticulitis, s/p L colectomy, colostomy, and now loop ileostomy who presented from OSH on 10/19 for concerns for SBO. Upon presentation, the patient was significantly distended, nauseous, and diffuse abd pain most localized in the RUQ. OSH CT A/P showed signs of partial SBO. NPO diet was started and NGT was placed for bowel decompression. Patient was also found to have concomitant JOSE on labwork, likely secondary to dehydration given FeNa <3%, was managed with fluids and trended kidney function. The patient's bowel was decompressed with NGT with output gradually decreasing and ostomy beginning to have output once more. He passed clamp trial and was able to have NGT removed and diet advanced from clears to gi soft over the course of his stay. His UOP and kidney function also improved with fluid therapy over the course of his stay. On 10/28, the patient was hemodynamically stable and deemed medically appropriate for discharge. He will follow up with Dr. Peralta in [facility] in 2-3 weeks. [facility] <ANTONELLA Cuevas - Last Filed: 11/04/23 21:04> [facility] Disclaimer: The information contained in this section may have been updated after the patient was seen, as this information can be updated by other users. Social History (Updated 10/20/23 @ 16:44 by Eliza Smith DO) Smoking Status: Former smoker alcohol intake: never current occupational status: retired Travel in the last 8 weeks: None <ANTONELLA Cuevas - Last Filed: 11/04/23 21:04> ROS Obtained: Yes Systems reviewed as appropriate & no additional complaints except as documented Physical Exam <ANTONELLA Cuevas - Last Filed: 11/04/23 21:04> General General appearance: alert and in no apparent distress Respiratory Respiratory exam: Present normal lung sounds bilaterally and accessory muscle use Cardiovascular Cardiovascular exam: Present regular rate, normal rhythm and normal heart sounds Abdominal Exam Abdominal exam: Present soft, distention (And slightly tympanic), tenderness (Diffuse intense tenderness even to light palpation) and hyperactive bowel sounds; Absent guarding, rebound or rigidity Extremities Exam Extremities exam: Present normal inspection and full ROM Back Exam Back exam: Present normal inspection and full ROM Neurological Exam Neurological exam: Present alert and oriented X3 Medical Decision Making <ANTONELLA Cuevas - Last Filed: 11/04/23 21:04> Medical Records Medical records reviewed: Yes I reviewed the patient's medical records. Michael Inquiry Pt receiving controlled substance: No Vital Signs: 11/04/23 19:04 11/04/23 20:30 Temperature 98.7 F Temperature Source Oral Pulse Rate 88 Pulse Rate [Right Radial] 86 Respiratory Rate 22 Blood Pressure 144/82 H Blood Pressure [Right Arm] 133/93 H Blood Pressure Mean [Right Arm] 106 02 Sat by Pulse Oximetry 95 95 Oxygen Delivery Method Room Air Lab Data Lab results reviewed: Yes I reviewed the patient's lab results. Lab Results 11/04/23 19:36: WBC 12.6 H, RBC 4.33 L, Hgb 13.5 L, Hct 39.9 L, MCV 92.3, MCH 31.2, MCHC 33.9, RDW 15.6, Plt Count 355, MPV 7.5, Neut % (Auto) 84.2 H, Lymph % (Auto) 9.1 L, [place] % (Auto) 4.8, Eos % (Auto) 1.6, Baso % (Auto) 0.4, Neut # (Auto) 10.6 H, Lymph # (Auto) 1.1, [place] # (Auto) 0.6, Eos # (Auto) 0.2, Baso # (Auto) 0.1, Sodium 140, Potassium 3.6, Chloride 99, Carbon Dioxide 30, Anion Gap 14.6, BUN 19, Creatinine 2.30 H, Estimated Creat Clear 42, Estimated GFR 28 L, E st GFR ( Amer) 34 L, Glucose 119 H, Calcium 8.5, Total Bilirubin 0.9, AST 33, ALT 38, Alkaline Phosphatase 118, Total Protein 6.9, Albumin 3.8, Globulin 3.1, Albumin/Globulin Ratio 1.2, Procalcitonin 0.124 11/04/23 19:36 11/04/23 19:36 Orders (Tests/Meds): ED MEDICATIONS Generic Name Dose Route Start Last Admin Trade Name Freq PRN Reason Stop Dose Admin Piperacillin Sod/Tazobactam 50 mls @ 100 mls/hr 11/04/23 21:15 Sod 3.375 gm/ Sodium Chloride IV 11/14/23 21:14 Q6H JIN Discontinued Medications Generic Name Dose Route Start Last Admin Trade Name Ion PRN Reason Stop Dose Admin Acetaminophen 1,000 mg 11/04/23 19:08 11/04/23 19:31 Acetaminophen 1,000mg/100ml Vial IV 11/04/23 19:09 1,000 mg ONCE ONE Administration Hydromorphone HCl 0.5 mg 11/04/23 19:49 11/04/23 20:07 Hydromorphone 2mg/Ml Syringe IV 11/04/23 19:50 0.5 mg ONCE ONE Administration Lactated Ringer's 1,000 mls @ 999 mls/hr 11/04/23 19:08 11/04/23 19:30 Lactated Ringer's 1000 Ml Bag IV 11/04/23 20:08 999 mls/hr .Q1H1M ONE Administration Iopamidol 75 ml 11/04/23 20:01 11/04/23 20:02 Iopamidol-370 (76%);100ml Bottle IV 11/04/23 20:02 75 ml ONCE ONE Administration Ondansetron HCl 4 mg 11/04/23 19:08 11/04/23 19:31 Ondansetron 4mg/2ml Vial IV 11/04/23 19:09 4 mg ONCE ONE Administration Sodium Chloride 10 ml 11/04/23 20:01 11/04/23 20:02 Sodium Chloride 0.9% 10ml Syr (Rad Only) IV 11/04/23 20:02 10 ml ONCE ONE Administration ORDERS Category Date Time Status CT abdomen pelvis w con Stat Cat Scan 11/04/23 19:08 Completed KUB (single view) [XR KUB] Stat Exams 11/04/23 19:44 Completed CBC w/Auto Diff [Complete Blood Count Auto Diff] Stat Lab 11/04/23 19:36 Completed CMP [Comprehensive Metabolic Panel] Stat Lab 11/04/23 19:36 Completed Lactic Acid Stat Lab 11/04/23 19:09 Ordered Procalcitonin Stat Lab 11/04/23 19:36 Completed Tissue Perfus/Sepsis Re-Eval Sepsis Re-Evaluation Performed: Yes Date Performed: 11/04/23 Time Performed: 21:04 Medical Decision Narrative: In summary patient is a 72-year-old male who presents to the emergency department for evaluation of nausea vomiting and abdominal pain. Patient is dynamically currently upon arrival, and afebrile. Physical exam is remarkable for scant contents of his ostomy bag that appears very thin liquid but stool colored, diffuse abdominal distention and tenderness to light palpation with hyperactive bowel sounds but no rebound tenderness. Differential diagnosis includes recurrent high-grade proximal small bowel obstruction versus constipation although less likely versus gastroenteritis although again unlikely etc. Initial workup will be conducted with hematologic labs CT scan abdomen pelvis. Initial interventions include crystalloid bolus Zofran NG tube decompression. Initial workup reviewed by me shows patient has an elevated white count, he does have an acute kidney injury, and my informal interpretation of his imaging shows a high-grade small bowel obstruction with a transition point just prior to or in the parastomal hernia with decompressed jejunum distally but also I see pneumatosis . Additionally, I informally interpreted his KUB after NG tube placement to assure that it was actually in the stomach which it was. Upon repeat evaluation did report improvement after NG tube decompression.. Given this I had an interactive discussion with [facility] about patient management. Patient has been accepted to the [facility] emergency room care of Dr. Resendiz of colorectal surgery. <Zaheer Gonzales MD - Last Filed: 11/04/23 21:37> Vital Signs: 11/04/23 19:04 11/04/23 20:30 Temperature 98.7 F Temperature Source Oral Pulse Rate 88 Pulse Rate [Right Radial] 86 Respiratory Rate 22 Blood Pressure 144/82 H Blood Pressure [Right Arm] 133/93 H Blood Pressure Mean [Right Arm] 106 02 Sat by Pulse Oximetry 95 95 Oxygen Delivery Method Room Air Lab Data Lab Results 11/04/23 19:36: WBC 12.6 H, RBC 4.33 L, Hgb 13.5 L, Hct 39.9 L, MCV 92.3, MCH 31.2, MCHC 33.9, RDW 15.6, Plt Count 355, MPV 7.5, Neut % (Auto) 84.2 H, Lymph % (Auto) 9.1 L, [place] % (Auto) 4.8, Eos % (Auto) 1.6, Baso % (Auto) 0.4, Neut # (Auto) 10.6 H, Lymph # (Auto) 1.1, [place] # (Auto) 0.6, Eos # (Auto) 0.2, Baso # (Auto) 0.1, Sodium 140, Potassium 3.6, Chloride 99, Carbon Dioxide 30, Anion Gap 14.6, BUN 19, Creatinine 2.30 H, Estimated Creat Clear 42, Estimated GFR 28 L, E st GFR ( Amer) 34 L, Glucose 119 H, Calcium 8.5, Total Bilirubin 0.9, AST 33, ALT 38, Alkaline Phosphatase 118, Total Protein 6.9, Albumin 3.8, Globulin 3.1, Albumin/Globulin Ratio 1.2, Procalcitonin 0.124 Orders (Tests/Meds): ED MEDICATIONS Generic Name Dose Route Start Last Admin Trade Name Freq PRN Reason Stop Dose Admin Piperacillin Sod/Tazobactam 50 mls @ 100 mls/hr 11/04/23 21:15 Sod 3.375 gm/ Sodium Chloride IV 11/14/23 21:14 Q6H JIN Discontinued Medications Generic Name Dose Route Start Last Admin Trade Name Freq PRN Reason Stop Dose Admin Acetaminophen 1,000 mg 11/04/23 19:08 11/04/23 19:31 Acetaminophen 1,000mg/100ml Vial IV 11/04/23 19:09 1,000 mg ONCE ONE Administration Hydromorphone HCl 0.5 mg 11/04/23 19:49 11/04/23 20:07 Hydromorphone 2mg/Ml Syringe IV 11/04/23 19:50 0.5 mg ONCE ONE Administration Lactated Ringer's 1,000 mls @ 999 mls/hr 11/04/23 19:08 11/04/23 19:30 Lactated Ringer's 1000 Ml Bag IV 11/04/23 20:08 999 mls/hr .Q1H1M ONE Administration Iopamidol 75 ml 11/04/23 20:01 11/04/23 20:02 Iopamidol-370 (76%);100ml Bottle IV 11/04/23 20:02 75 ml ONCE ONE Administration Ondansetron HCl 4 mg 11/04/23 19:08 11/04/23 19:31 Ondansetron 4mg/2ml Vial IV 11/04/23 19:09 4 mg ONCE ONE Administration Sodium Chloride 10 ml 11/04/23 20:01 11/04/23 20:02 Sodium Chloride 0.9% 10ml Syr (Rad Only) IV 11/04/23 20:02 10 ml ONCE ONE Administration ORDERS Category Date Time Status CT abdomen pelvis w con Stat Cat Scan 11/04/23 19:08 Completed KUB (single view) [XR KUB] Stat Exams 11/04/23 19:44 Completed CBC w/Auto Diff [Complete Blood Count Auto Diff] Stat Lab 11/04/23 19:36 Completed CMP [Comprehensive Metabolic Panel] Stat Lab 11/04/23 19:36 Completed Lactic Acid Stat Lab 11/04/23 19:09 Ordered Procalcitonin Stat Lab 11/04/23 19:36 Completed Medical Decision Narrative: In summary patient is a 72-year-old male who presents to the emergency department for evaluation of nausea vomiting and abdominal pain. Patient is dynamically currently upon arrival, and afebrile. Physical exam is remarkable for scant contents of his ostomy bag that appears very thin liquid but stool colored, diffuse abdominal distention and tenderness to light palpation with hyperactive bowel sounds but no rebound tenderness. Differential diagnosis includes recurrent high-grade proximal small bowel obstruction versus constipation although less likely versus gastroenteritis although again unlikely etc. Initial workup will be conducted with hematologic labs CT scan abdomen pelvis. Initial interventions include crystalloid bolus Zofran NG tube decompression. Initial workup reviewed by me shows patient has an elevated white count, he does have an acute kidney injury, and my informal interpretation of his imaging shows a high-grade small bowel obstruction with a transition point just prior to or in the parastomal hernia with decompressed jejunum distally but also I see pneumatosis . Additionally, I informally interpreted his KUB after NG tube placement to assure that it was actually in the stomach which it was. Upon repeat evaluation did report improvement after NG tube decompression.. Given this I had an interactive discussion with [facility] about patient management. Patient has been accepted to the [facility] emergency room care of Dr. Resendiz of colorectal surgery. I was consulted by the DAVID, and we discussed the complexity of the problems being addressed. I approved the treatment and management plan for this patient's care in the emergency department, thus performing a substantive portion of the medical decision making. Antibiotics were administrated given pneumatosis in the setting of high-grade obstruction Zaheer Gonzales MD Critical Care <ANTONELLA Cuevas - Last Filed: 11/04/23 21:04> Critical Care Time Critical Care Time: No
--- NOTE | 2023-11-04 19:08 | CT_ITS ---
PROCEDURE INFORMATION: Exam: CT Abdomen And Pelvis With Contrast Exam date and time: 11/04/2023 7:59 PM Age: 72 years old Clinical indication: Abdominal pain; Generalized; Additional info: Abdominal pain, no ostomy output, recent sbo TECHNIQUE: Imaging protocol: Computed tomography of the abdomen and pelvis with contrast. Radiation optimization: All CT scans at this facility use at least one of these dose optimization techniques: automated exposure control; mA and/or kV adjustment per patient size (includes targeted exams where dose is matched to clinical indication); or iterative reconstruction. Contrast material: ISOVUE; Contrast volume: 75 ml; Contrast route: IV; COMPARISON: CT ABDOMEN PELVIS WO CON 10/20/2023 2:19 PM FINDINGS: Tubes, catheters and devices: Nasogastric tube identified tip within the body of the stomach. Lungs: The visualized lung bases demonstrate no focal infiltrates or pleural effusions. Liver: The liver appears within normal limits. Gallbladder and biliary ducts: There has been a cholecystectomy. Pancreas: Normal. No ductal dilation. Spleen: The spleen is normal. Adrenal glands: The adrenal glands appear within normal limits. Kidneys and ureters: Exophytic simple cyst off the right kidney mid to lower pole measures 3 cm. Stomach and bowel: Dilated loops of small bowel again identified without improvement from the prior CT scan. Maximal distension 5 cm. They are fluid-filled. In addition there is marginal is a leal of gas bubbles abutting the ivey both on the dependent and nondependent portion of the small bowel throughout most of the entire region of dilated bowel. All of these findings are consistent with ischemic bowel with pneumatosis. However this does not appear to be the source of the small bowel obstruction. The transition point for the obstruction is best seen on sagittal image 41 and axial image 56. Presumably due to adhesion. Appendix: No evidence of appendicitis. Intraperitoneal space: There is also mesenteric edema. Vasculature: Unremarkable. No abdominal aortic aneurysm. Lymph nodes: Unremarkable. No enlarged lymph nodes. Urinary bladder: The bladder lumen is decompressed with extrinsic mass effect secondary to the dilated small bowel loops. Reproductive: Unremarkable as visualized. Bones/joints: Unremarkable. No acute fracture. Soft tissues: The patient is noted to have a ventral hernia containing decompressed loops of small bowel. IMPRESSION: 1. Persistent high-grade small bowel obstruction with evidence for developing ischemia with pneumatosis identified. 2. The patient is noted to have a ventral ostomy with peristomal hernia containing decompressed loops of small bowel. However this does not appear to be the source of the small bowel obstruction. The transition point for the obstruction is best seen on sagittal image 41 and axial image 56. Presumably due to adhesion. 3. The bladder lumen is decompressed with extrinsic mass effect secondary to the dilated small bowel loops. COMMENTS: Consistent with the [employer]'s Incidental Findings Committee white paper (J Am Heather Radiol 2018): Any incidental renal lesion less than 1 cm or classified as too small to characterize, or any incidental cystic renal lesion characterized as simple-appearing, is likely benign. No follow-up imaging is recommended for these lesions per consensus recommendations based on imaging criteria.
[2023-11-04] MEDS: LACTATED RINGERS 1000ML 1,000 ML 999 ML IV (19:30)
[2023-11-04] MEDS: ONDANSETRON 4MG/2ML VIAL 4 MG IV (19:31)
[2023-11-04] MEDS: ACETAMINOPHEN 1,000MG/100ML VIAL 1000 MG IV (19:31)
--- NOTE | 2023-11-04 19:44 | XR_ITS ---
PROCEDURE INFORMATION: Exam: XR Abdomen Exam date and time: 11/04/2023 7:41 PM Age: 72 years old Clinical indication: Device placement; Gi device; Nasogastric tube; Additional info: Ng tube placement TECHNIQUE: Imaging protocol: Radiologic exam of the abdomen. Views: Frontal supine view of the abdomen. 1 View. COMPARISON: CT ABDOMEN PELVIS WO CON 10/20/2023 2:19 PM FINDINGS: Tubes, catheters and devices: Nasogastric tube identified with tip projecting over the body of the stomach. Gastrointestinal tract: Partially visualized abnormal dilated loops of small bowel-see recent CT abdomen report for additional details Bones/joints: Unremarkable. IMPRESSION: Nasogastric tube identified with tip projecting over the body of the stomach.
[2023-11-04 19:50] LABS: Basophils # 0.1 K/mm3 (0-0.2); Basophils % 0.4 % (0.1-2.0); Eosinophils # 0.2 K/mm3 (0.0-0.4); Eosinophils % 1.6 % (0.1-12.0); Hematocrit 39.9 % (42.0-52.0); Hemoglobin 13.5 g/dL (14.1-18.0); Lymphocytes # 1.1 K/mm3 (0.7-4.5); Lymphocytes % 9.1 % (10-50); Mean Corpuscular HGB Conc 33.9 g/dL (31.8-35.4); Mean Corpuscular Hemoglobin 31.2 pg (27.0-31.2); Mean Corpuscular Volume 92.3 fl (80-94); Mean Platelet Volume 7.5 fl (7.4-10.4); Monocytes # 0.6 K/mm3 (0.1-1.0); Monocytes % 4.8 % (1.7-9.3); Neutrophils # 10.6 K/mm3 (1.8-7.8); Neutrophils % 84.2 % (37.0-80.0); Platelet Count 355 K/mm3 (142-424); Red Blood Count 4.33 M/mm3 (4.60-6.20); Red Cell Distribution Width 15.6 % (11.5-17.5); White Blood Count 12.6 K/mm3 (4.8-10.8)
--- NOTE | 2023-11-04 19:56 | PC.NURSE ---
Pt transported to CT, Power PICC flushed, blood return noted with gastrointestinal technicianjuliana Bray
[2023-11-04 20:02] LABS: Alanine Aminotransferase 38 U/L (12-78); Albumin Level 3.8 g/dl (3.5-5.0); Albumin/Globulin Ratio 1.2 (1.1-1.8); Alkaline Phosphatase 118 U/L (38-126); Anion Gap 14.6 mEq/L (5-15); Aspartate Amino Transferase 33 U/L (17-59); Bilirubin,Total 0.9 mg/dl (0.2-1.3); Blood Urea Nitrogen 19 mg/dl (9-20); Calcium 8.5 mg/dl (8.4-10.2); Carbon Dioxide 30 mmol/L (22.0-30.0); Chloride 99 mmol/L (98-107); Creatinine Clearance Estimated 42 mL/min (50-200); Estimated Glomerular Filt Rate 28 ml/min (>60); GFR (African American) 34 ML/MIN (>60); Globulin 3.1 g/dL (1.3-3.2); Glucose 119 mg/dl (74-100); Potassium 3.6 mmoL/L (3.5-5.1); Sodium 140 mmol/L (136-145); Total Protein,Serum 6.9 g/dl (6.3-8.2)
[2023-11-04] MEDS: SODIUM CHLORIDE 0.9% 10ML SYR (RAD ONLY) 10 ML IV (20:02)
[2023-11-04] MEDS: IOPAMIDOL-370 (76%);100ML BOTTLE 75 ML IV (20:02)
[2023-11-04] MEDS: HYDROMORPHONE 2MG/ML SYRINGE 0.5 MG IV (20:07)
[2023-11-04 20:18] LABS: Procalcitonin 0.124 ng/mL (0.0-2.0)
[2023-11-04 20:30] VITALS: BP 144/82; PULSE 88; O2SAT 95
--- NOTE | 2023-11-04 20:57 | PC.NURSE ---
Per Dee Dee BERMAN, pt is accepted to [facility] ED by Dr. Peralta
--- NOTE | 2023-11-04 21:28 | PC.NURSE ---
report called to Josephine STEPHENSON
--- NOTE | 2023-11-04 21:29 | PC.NURSE ---
EMS notified of need for transport
[2023-11-04] MEDS: PIPERACILLIN/TAZO 3.375 GM in 0.9 % SODIUM CHLORIDE 50 ML IV (21:40)
[2023-11-04 21:45] VITALS: BP 160/93; PULSE 85; RESP 20; TEMP 36.7; O2SAT 98
== END 2023-11-04 22:00 | disposition short-term general hospital (02) ==
PROVIDERS: Physician Assistant; Emergency Provider Emergency Medicine; PCP Nurse Practitioner Family
DX: A41.9 Sepsis, unspecified organism (principal); K56.601 Complete intestinal obstruction, unspecified as to cause; R10.0 Acute abdomen; R11.2 Nausea with vomiting, unspecified; Z87.19 Personal history of other diseases of the digestive system; Z93.3 Colostomy status; Z87.891 Personal history of nicotine dependence; Z85.118 Personal history of other malignant neoplasm of bronchus and lung; Z92.21 Personal history of antineoplastic chemotherapy; Z92.3 Personal history of irradiation
CPT/HCPCS: 74018; 74177; 80053; 84145; 85025; 96361; 96365; 96375; 99285; J0131; J1170; J2405; J2543; J7120; Q9967

== ENCOUNTER 2024-03-11 16:09 | Outpatient (CLI) | payer MEDICARE, BC, SELFPAY ==
--- NOTE | 2024-03-11 16:16 | XR_ITS ---
PROCEDURE INFORMATION: Exam: XR Lumbosacral Spine Exam date and time: 03/11/2024 4:18 PM Age: 73 years old Clinical indication: Other: Acute right sided low back pain TECHNIQUE: Imaging protocol: Radiologic exam of the lumbosacral spine. Views: 4 or 5 views. COMPARISON: CT ABDOMEN PELVIS W CON 11/04/2023 7:59 PM FINDINGS: Bones/joints: Five lumbar-type vertebral bodies. No acute fracture or subluxation. Multilevel disc space narrowing and vertebral body spurring. Multilevel facet arthropathy. Mild lumbar spine levocurvature with the apex at L3. Soft tissues: Unremarkable. Vasculature: Atherosclerosis. IMPRESSION: 1. No acute fracture or subluxation. 2. Multilevel degenerative change of the spine.
== END 2024-03-11 23:59 | disposition home or self-care (01) ==
LOC: RAD 16:11
PROVIDERS: PCP Nurse Practitioner Family; Visit Provider Nurse Practitioner Family
DX: M54.50 Low back pain, unspecified (principal); C34.91 Malignant neoplasm of unspecified part of right bronchus or lung
CPT/HCPCS: 72110

== ENCOUNTER 2024-10-07 09:15 | Day surgery (SDC) | payer MEDICARE, BC, SELFPAY ==
[2024-10-04 09:14] VITALS: BMI 33.4
--- NOTE | 2024-10-04 11:11 | SUR.PREOP ---
spoke w/bj to confirm that pt is good to stay on blood thinners for procedure.
[2024-10-07 09:53] VITALS: BP 106/79; PULSE 53; RESP 17; TEMP 36.4; O2SAT 97
[2024-10-07] MEDS: LIDOCAINE 1% 20ML MDV 20 ML (10:15)
[2024-10-07 10:30] VITALS: BP 105/64; PULSE 68; RESP 18; TEMP 36.9; O2SAT 100
--- NOTE | 2024-10-07 10:34 | EXP.OP.NOTE ---
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 His right upper back was prepped and draped in a sterile fashion. After infiltration with local anesthetic an elliptical incision was made around the lesion. Dissection was taken sharply into the deeper subcutaneous tissue. The lesion was excised in toto and passed off for pathologic evaluation. Thermal cautery was utilized to achieve hemostasis. Skin was then reapproximated with interrupted 4-0 nylon in a mattress fashion. Dressings were applied and the patient was discharged home in stable condition. Condition: stable Disposition: no change Specimens:: Right upper back skin neoplasm Complications:: No immediate
== END 2024-10-07 10:38 | disposition home or self-care (01) ==
PROVIDERS: PCP Nurse Practitioner Family; Visit Provider Surgery
PROC: (CPT 11601; principal; 2024-10-07 10:45)
DX: C44.519 Basal cell carcinoma of skin of other part of trunk (principal); Z87.891 Personal history of nicotine dependence; Z88.8 Allergy status to other drugs, medicaments and biological substances; Z79.82 Long term (current) use of aspirin; Z79.890 Hormone replacement therapy; Z79.899 Other long term (current) drug therapy; Z79.02 Long term (current) use of antithrombotics/antiplatelets
CPT/HCPCS: 11601; 88305; J2003